=== PATIENT | female | born 1990 | race Caucasian/White ===

== ENCOUNTER 2020-04-18 11:20 | Inpatient (IN) | payer BC ==
[~2020-04-18] VITALS: Ht 180.3 cm; Wt 119.5 kg
[~2020-04-18 11:20] MED LIST: FERROUS SULFATE65 MG PO; IBU600 MG PO; MOTRIN 600600 MG/TAB PO; PERCOCET 325 MG1 TA2 PO; PRENATAL1 TA1 PO
[2020-04-22] VITALS (16 sets, daily range): BP systolic 109–138; BP diastolic 43–87; PULSE 65–93; TEMP 98.1–98.6
--- NOTE | 2020-04-22 09:15 | NUR ---
Patient ambulatory onto unit with at side for scheduled repeat section. Patient oriented to room and plan of care. Changes into gown, belly band on. Patient reports good movement and irregular contractions, denies vaginal bleeding or leaking of fluid. EFMs on, VS taken. Assessment completed. Consents signed.
[2020-04-22] MEDS ORDERED: VITAMIN C500 MG PO (09:27)
[2020-04-22 10:26] LABS: BASO % 0.2 % (0.0-2.0); EOS % 0.5 % (0-4.0); GRAN # 5.7 (1.4-6.5); GRAN % 69.7 % (42.2-75.2); HEMOGLOBIN 11.4 g/dl (12.5-16.0); LYMPH % 25.1 % (20.0-51.0); MEAN CELL VOLUME 89 fl (80.0-100.0); MEAN CORPUSCULAR HEMOGLOBIN 31 pg (27.0-31.0); MEAN CORPUSCULAR HGB CONC 35 g/dl (33.0-37.0); MEAN PLATELET VOLUME 10.9 fl (7.4-10.4); MONO # 0.4 (0.1-0.6); MONO % 4.3 % (1.7-9.3); PLATELET COUNT 195 K/mm3 (130-400); RED BLOOD COUNT 3.71 M/mm3 (4.10-5.30); REDCELL DISTRIBUTION WIDTH-CV 13.6 % (11.5-14.5)
[2020-04-23 00:15] VITALS: BP 118/71; PULSE 66; TEMP 98.1
[2020-04-23 04:15] VITALS: BP 110/65; PULSE 67; TEMP 98
[2020-04-23 08:15] VITALS: BP 113/63; PULSE 61; TEMP 97.6
--- NOTE | 2020-04-23 08:15 | NUR ---
Rests in bed, alert. Denies any needs at this time.
[2020-04-23] MEDS ORDERED: PERCOCET 325 MG1 TA2 PO (09:56)
[2020-04-23] MEDS ORDERED: MOTRIN 600600 MG/TAB PO (09:56)
--- NOTE | 2020-04-23 11:15 | NUR ---
Rests in chair . Ibuprofen 600 mg, percocet 5/325 mg two given per request and as ordered.
[2020-04-23 16:00] VITALS: BP 119/72; PULSE 63; TEMP 97.8
[2020-04-23 22:25] VITALS: BP 134/76; PULSE 66; TEMP 97.8
[2020-04-24 09:13] VITALS: BP 140/78; PULSE 75; TEMP 97.6
== END 2020-04-24 11:50 | disposition home or self-care (01) | DRG 788 ==
LOC: OB 11:20
PROVIDERS: ADMIT Obstetrics & Gynecology
PROC: 10D00Z1 Extraction of Products of Conception, Low, Open Approach (ICD-10-PCS; principal; 2020-04-22)
DX: O34.211 Maternal care for low transverse scar from previous cesarean delivery (principal); O69.1XX0 Labor and delivery complicated by cord around neck, with compression, not applicable or unspecified; Z3A.39 39 weeks gestation of pregnancy; Z37.0 Single live birth
CPT/HCPCS: J0690; J1885; J2175; J2370; J2405; J2590; J2765; J7120

== ENCOUNTER → 2020-04-19 | Outpatient (CLI) | payer BC ==
[~2020-04-19] MED LIST changes: +VITAMIN C500 MG PO
== END ==
LOC: ZCOL.LAB
DX: Z20.828 Contact with and (suspected) exposure to other viral communicable diseases (principal)